=== PATIENT | male | born 1950 | race Caucasian/White ===

== ENCOUNTER 2016-08-09 12:53 | Emergency (ER) | payer MEDICARE, OTHER, MEDICAID ==
[~2016-08-09 12:53] MED LIST: ASPIR-LOW81 M1 PO; AZOR 10/40 MG T1 TAB PO; ENALAPRIL MALEA20 MG PO; MINOXIDIL10 M1 PO; [UNRECOGNIZED DRUG - OTHER] PO
[2016-08-09 13:45] LABS: BASO % 0.3 % (0-2); EOSINOPHIL ABSOLUTE COUNT 0.3 tho/cmm (0.0-0.7); HCT-HEMATOCRIT 38.7 % (36.0-53.5); IMMATURE GRANULOCYTES ABSOLUTE 0.03 tho/cmm (0-0.03); IMMATURE GRANULOCYTES PERCENT 0.3 % (0-0.3); LYMPH % 12.6 % (20-45); LYMPH ABSOLUTE COUNT 1.2 tho/cmm (0.8-4.5); MCH (MEAN CORPUSCULAR HGB) 26.7 pg (28.0-32.0); MCHC MEAN CORPUSCULAR HGB CONC 33.6 % (32.0-36.0); MCV (MEAN CELL VOLUME) 79.5 fl (82.0-96.0); MEAN PLATELET VOLUME 9.6 cmc (9.4-12.4); MONO % 5.8 % (0-12); MONOCYTE ABSOLUTE COUNT 0.5 tho/cmm (0.0-1.2); NEUTROPHIL ABSOLUTE COUNT 7.2 tho/cmm (1.6-8.0); NEUTROPHIL-AUTOMATED 7.2 tho/cmm (1.6-8.0); PLATELET COUNT 295 tho/cmm (150-450); RED BLOOD COUNT 4.87 mil/cmm (4.40-5.70); RED CELL DISTRIBUTION WIDTH 15.2 % (12.4-16.4); WHITE BLOOD COUNT 9.3 tho/cmm (4.0-10.0)
[2016-08-09 13:58] LABS: URINE BILIRUBIN NEGATIVE (NEG); URINE BLOOD NEGATIVE (NEG); URINE GLUCOSE (UA) NEGATIVE (NEG); URINE KETONE NEGATIVE (NEG); URINE LEUKOCYTE ESTERASE NEGATIVE (NEG); URINE NITRITE NEGATIVE (NEG); URINE PROTEIN NEGATIVE (NEG); URINE SPECIFIC GRAVITY 1.005 (1.003-1.030)
[2016-08-09 13:59] LABS: URINE APPEARANCE CLEAR; URINE COLOR YELLOW
[2016-08-09 14:02] LABS: ALB/GLOB RATIO 1.1 (0.8-2.0); ALBUMIN 3.8 g/dl (3.5-5.0); ALKALINE PHOSPHATASE 58 U/L (33-138); ALT/SGPT 18 U/L (12-78); ANION GAP 13 mmol/L (0-20); AST/SGOT 17 U/L (10-40); BILIRUBIN,TOTAL 0.4 mg/dl (0.0-1.5); BLOOD UREA NITROGEN 6 mg/dl (6-24); CALCIUM 8.8 mg/dl (8.5-10.5); CARBON DIOXIDE-VENOUS 24 mmol/L (22-32); CHLORIDE 103 mmol/l (96-110); CREATININE 0.77 mg/dl (0.60-1.30); GLUCOSE 103 mg/dL (70-110); LIPASE 128 U/L (73-393); POTASSIUM 4.2 mmol/L (3.7-5.1); SODIUM 136 mmol/L (135-145); eGFR VALUE FOR BLACK >90 mL/Min
[2016-08-09] MEDS ORDERED: ULTRAM50 M1 PO (14:27)
[2016-08-09] MEDS ORDERED: ATIVAN0.5 M1 PO (14:27)
[2016-08-09] MEDS ORDERED: BENTYL10 M1 PO (14:27)
[2016-08-09] MEDS ORDERED: COZAAR50 M1 PO (14:27)
[2016-08-09] MEDS ORDERED: TRAZODONE HCL50 M1 PO (14:28)
[2016-08-09] MEDS ORDERED: TRIAMCINOLONE A15 G3 TOP (14:28)
[2016-08-09] MEDS ORDERED: XARELTO20 M1 PO (14:36)
[2016-08-09] MEDS ORDERED: PROTONIX40 M2 PO (14:36)
[2016-08-09] MEDS ORDERED: FLOMAX0.4 M1 PO (14:37)
[2016-08-09] MEDS ORDERED: METAMUCIL0.52 G1 PO (14:38)
[2016-08-09] MEDS ORDERED: MEN 50 PLUS MU1 EACH PO (14:38)
[2016-08-09] MEDS ORDERED: DULCOLAX STOOL100 M1 PO (14:38)
== END 2016-08-09 15:04 ==
LOC: EDMED 12:53
PROVIDERS: Emergency Medicine
DX: R10.84 Generalized abdominal pain (principal); Z87.19 Personal history of other diseases of the digestive system; I48.91 Unspecified atrial fibrillation; Z95.0 Presence of cardiac pacemaker; Z79.899 Other long term (current) drug therapy; Z79.82 Long term (current) use of aspirin
CPT/HCPCS: J1885

== ENCOUNTER 2016-08-13 09:55 | Inpatient (IN) | payer MEDICARE, OTHER, MEDICAID, SELFPAY ==
[~2016-08-13 09:55] MED LIST changes: +ATIVAN0.5 M1 PO; +BENTYL10 M1 PO; +COZAAR50 M1 PO; +DULCOLAX STOOL100 M1 PO; +FLOMAX0.4 M1 PO; +MEN 50 PLUS MU1 EACH PO; +METAMUCIL0.52 G1 PO; +PROTONIX40 M2 PO; +TRAZODONE HCL50 M1 PO; +TRIAMCINOLONE A15 G3 TOP; +ULTRAM50 M1 PO; +XARELTO20 M1 PO
[2016-08-13 10:43] LABS: PROTHROMBIN TIME 12.1 SECONDS (9.0-13.6)
[2016-08-13] MEDS ORDERED: ACETAMINOPHEN500 M4 PO (11:35)
[2016-08-16] MEDS ORDERED: HYDROCODON-ACE1 EA16 PO (16:23)
== END 2016-08-16 20:10 | DRG 419 ==
LOC: SRG 09:55 → SHSC 09:59 → ORW 12:05 → PACU 13:35 → BURN 15:34
PROVIDERS: ADMIT Surgery
PROC: 0FT44ZZ Resection of Gallbladder, Percutaneous Endoscopic Approach (ICD-10-PCS; principal; 2016-08-13)
DX: K82.8 Other specified diseases of gallbladder (principal); I48.91 Unspecified atrial fibrillation; I44.1 Atrioventricular block, second degree; I69.331 Monoplegia of upper limb following cerebral infarction affecting right dominant side; I10 Essential (primary) hypertension; F10.10 Alcohol abuse, uncomplicated; G14 Postpolio syndrome; E78.00 Pure hypercholesterolemia, unspecified; M51.16 Intervertebral disc disorders with radiculopathy, lumbar region; G47.33 Obstructive sleep apnea (adult) (pediatric); Z79.82 Long term (current) use of aspirin; Z79.01 Long term (current) use of anticoagulants; Z88.0 Allergy status to penicillin
CPT/HCPCS: J1170; J1956; J2405; J2550; J2765; J3010; J7030

== ENCOUNTER 2016-08-20 07:17 | Inpatient (IN) | payer MEDICARE, OTHER, MEDICAID ==
[~2016-08-20 07:17] MED LIST changes: +ACETAMINOPHEN500 M4 PO; +HYDROCODON-ACE1 EA16 PO
[2016-08-20 08:06] LABS: BASO % 0.1 % (0-2); EOS % 0.6 % (0-7); EOSINOPHIL ABSOLUTE COUNT 0.1 tho/cmm (0.0-0.7); HCT-HEMATOCRIT 27.7 % (36.0-53.5); HGB-HEMOGLOBIN 9.1 gm/dl (13.5-17.0); IMMATURE GRANULOCYTES ABSOLUTE 0.11 tho/cmm (0-0.03); IMMATURE GRANULOCYTES PERCENT 0.8 % (0-0.3); LYMPH % 8.2 % (20-45); LYMPH ABSOLUTE COUNT 1.2 tho/cmm (0.8-4.5); MCH (MEAN CORPUSCULAR HGB) 26.1 pg (28.0-32.0); MCHC MEAN CORPUSCULAR HGB CONC 32.9 % (32.0-36.0); MCV (MEAN CELL VOLUME) 79.4 fl (82.0-96.0); MEAN PLATELET VOLUME 9.6 cmc (9.4-12.4); MONO % 8.1 % (0-12); MONOCYTE ABSOLUTE COUNT 1.2 tho/cmm (0.0-1.2); NEUTROPHILS % 82.2 % (40-80); PLATELET COUNT 339 tho/cmm (150-450); RED BLOOD COUNT 3.49 mil/cmm (4.40-5.70); RED CELL DISTRIBUTION WIDTH 15.5 % (12.4-16.4); WHITE BLOOD COUNT 14.5 tho/cmm (4.0-10.0)
[2016-08-20 08:34] LABS: ALB/GLOB RATIO 0.8 (0.8-2.0); ALKALINE PHOSPHATASE 58 U/L (33-138); ALT/SGPT 15 U/L (12-78); AMYLASE 15 U/L (20-90); ANION GAP 15 mmol/L (0-20); AST/SGOT 15 U/L (10-40); BILIRUBIN,TOTAL 1.2 mg/dl (0.0-1.5); BLOOD UREA NITROGEN 5 mg/dl (6-24); C-REACTIVE PROTEIN 13.3 mg/dl (0-0.9); CALCIUM 8.3 mg/dl (8.5-10.5); CARBON DIOXIDE-VENOUS 24 mmol/L (22-32); CHLORIDE 103 mmol/l (96-110); CREATININE 0.63 mg/dl (0.60-1.30); GLUCOSE 120 mg/dL (70-110); LIPASE 94 U/L (73-393); POTASSIUM 3.5 mmol/L (3.7-5.1); SODIUM 138 mmol/L (135-145); eGFR VALUE FOR BLACK >90 mL/Min
[2016-08-20 09:18] LABS: URINE APPEARANCE CLOUDY; URINE BILIRUBIN SMALL (NEG); URINE BLOOD LARGE (NEG); URINE COLOR YELLOW; URINE GLUCOSE (UA) NEGATIVE (NEG); URINE KETONE LARGE (NEG); URINE LEUKOCYTE ESTERASE POSITIVE (NEG); URINE NITRITE NEGATIVE (NEG); URINE PROTEIN MODERATE (NEG)
[2016-08-20 09:19] LABS: URINE OTHER VOLUME 1 ML
[2016-08-20 09:24] LABS: URINE WBC 35-40 /[HPF] (0-5)
[2016-08-20 09:25] LABS: URINE BACTERIA 1+; URINE EPITHELIAL CELLS 0-2 /[HPF] (0-10)
[2016-08-20 14:59] LABS: INR 1.5 INR (0.9-1.1); PROTHROMBIN TIME 18.1 SECONDS (9.0-13.6)
[2016-08-21 08:37] LABS: INR 1.4 INR (0.9-1.1); PROTHROMBIN TIME 16.2 SECONDS (9.0-13.6)
[2016-08-23 05:49] LABS: CREATININE 0.65 mg/dl (0.60-1.30); eGFR VALUE FOR BLACK >90 mL/Min
[2016-08-26] MEDS ORDERED: CALCI-CHEW500 MG PO (11:21)
== END 2016-08-26 15:30 | DRG 921 ==
LOC: EDMED 07:17 → EMR2 10:18 → BURN 10:28
PROVIDERS: Emergency Medicine; Surgery; ADMIT Surgery
PROC: 0W9G3ZZ Drainage of Peritoneal Cavity, Percutaneous Approach (ICD-10-PCS; principal; 2016-08-21)
DX: K91.871 Postprocedural hematoma of a digestive system organ or structure following other procedure (principal); I48.91 Unspecified atrial fibrillation; I10 Essential (primary) hypertension; Y83.8 Other surgical procedures as the cause of abnormal reaction of the patient, or of later complication, without mention of misadventure at the time of the procedure
CPT/HCPCS: J1956; J2060; J2250; J2405; J3010; J3370; J3430; J7030; Q9967